=== PATIENT | male | born 1995 | race Caucasian/White ===

== ENCOUNTER 2019-03-05 05:10 | Emergency (ER) | payer OTHER ==
[2019-03-05 07:02] LABS: URINE BLOOD (Dip) POC 3+ (NEGATIVE); URINE GLUCOSE (Dip) POC Negative (NEGATIVE); URINE KETONES (Dip) POC Negative (NEGATIVE); URINE LEUKOCYTE EST (Dip) POC Negative (NEGATIVE); URINE NITRITE (Dip) POC Negative (NEGATIVE); URINE TOTAL PROTEIN POC 3+ (NEGATIVE)
[2019-03-05 07:02] LABS: URINE PH (Dip) POC 5.5 (5.0-8.5)
[2019-03-05] MEDS: ONDANSETRON 4 MG INJ IV (07:39)
[2019-03-05] MEDS: morphine 4 MG/ML VIAL IV (07:39)
[2019-03-05] MEDS: FAMOTIDINE 20 MG TAB PO (07:39)
[2019-03-05] MEDS: SOD CHLORIDE 0.9% 1,000 ML IV (07:39)
[2019-03-05 07:51] LABS: ADD MAN DIFF? NO
[2019-03-05 07:54] LABS: BASOPHIL # 0.1 10^3/ul (0.0-0.1); BASOPHILS % 0.3 % (0.0-2.0); EOSINOPHILS % 0.1 % (0.0-7.0); HEMATOCRIT 44.6 % (42.0-52.0); HEMOGLOBIN 14.8 g/dl (14.0-18.0); LYMPHOCYTES # 1.2 10^3/ul (0.8-2.9); LYMPHOCYTES % 7.7 % (15.0-51.0); MEAN CORPUSCULAR HEMOGLOBIN 28.7 pg (29.0-33.0); MEAN CORPUSCULAR HGB CONC 33.2 g/dl (32.0-37.0); MEAN CORPUSCULAR VOLUME 86.4 fl (82.0-101.0); MEAN PLATELET VOLUME 9.8 fl (7.4-10.4); MONOCYTE # 0.9 10^3/ul (0.3-0.9); MONOCYTES % 5.8 % (0.0-11.0); NEUTROPHIL # 13.5 10^3/ul (1.6-7.5); NEUTROPHILS % 85.4 % (39.0-77.0); PLATELET COUNT 286 10^3/UL (140-415); RED BLOOD COUNT 5.16 10^6/ul (4.70-6.10); RED CELL DISTRIBUTION WIDTH 12.2 % (11.5-14.5)
[2019-03-05 07:54] LABS: WHITE BLOOD COUNT 15.8 10^3/ul (4.8-10.8)
[2019-03-05 08:12] LABS: ADD UMIC YES; ALANINE AMINOTRANSFERASE 22 IU/L (13-69); ALBUMIN 4.7 g/dl (3.3-4.9); ALBUMIN/GLOBULIN RATIO 1.51; ALKALINE PHOSPHATASE 64 IU/L (42-121); ANION GAP 12 (5-13); ASPARTATE AMINO TRANSFERASE 20 IU/L (15-46); BILIRUBIN,INDIRECT 0.9 mg/dl (0-1.1); BILIRUBIN,TOTAL 0.9 mg/dl (0.2-1.3); BLOOD UREA NITROGEN 18 mg/dl (7-20); CALCIUM 9.8 mg/dl (8.4-10.2); CARBON DIOXIDE 28 mmol/L (21-31); CHLORIDE 105 mmol/L (97-110); CREATININE 1.47 mg/dl (0.61-1.24); Estimated GFR 59 mL/min (>60); GLUCOSE 125 mg/dl (70-220); LIPASE 115 U/L (23-300); POTASSIUM 4.2 mmol/L (3.5-5.1); SODIUM 145 mmol/L (135-144); TOTAL PROTEIN 7.8 g/dl (6.1-8.1); UR AMORPHOUS CRYSTAL FEW /HPF (NONE SEEN); UR ASCORBIC ACID NEGATIVE (NEGATIVE); UR BACTERIA FEW /HPF (NONE SEEN); UR BILIRUBIN (Dip) NEGATIVE (NEGATIVE); UR BLOOD (Dip) 2+ mg/dL (NEGATIVE); UR CLARITY TURBID (CLEAR); UR COLOR AMBER (YELLOW); UR GLUCOSE (Dip) NEGATIVE (NEGATIVE); UR KETONES (Dip) TRACE mg/dL (NEGATIVE); UR LEUKOCYTE ESTERASE (Dip) NEGATIVE Leu/ul (NEGATIVE); UR MUCUS MODERATE /HPF (NONE SEEN); UR NITRITE (Dip) NEGATIVE (NEGATIVE); UR RBC 15 /HPF (0-5); UR SPECIFIC GRAVITY (Dip) 1.033 (1.003-1.030); UR TOTAL PROTEIN (Dip) 2+ mg/dl (NEGATIVE); UR UROBILINOGEN (Dip) NEGATIVE (NEGATIVE); UR WBC 1 /HPF (0-5)
[2019-03-05] MEDS: HYDROmorphONE 2 MG/ML SYG IV (09:45)
[2019-03-05] MEDS: IODIXANOL LOCM 100 ML BTL (10:11)
[2019-03-05] MEDS: SOD CHLORIDE 0.9% 100 ML (10:11)
== END 2019-03-05 11:07 | disposition home or self-care (01) ==
LOC: FTE 11:07
DX: N13.30 Unspecified hydronephrosis (principal); N20.2 Calculus of kidney with calculus of ureter
CPT/HCPCS: 36415; 74177; 76775; 80053; 81001; 81003; 83690; 85025; 96361; 96374; 96375; 99285-25